=== PATIENT | male | born 1960 | race Caucasian/White ===

== ENCOUNTER 2017-07-06 11:08 | Emergency (ER) | payer BC ==
[~2017-07-06] VITALS: Ht 185.4 cm; Wt 74.8 kg
[2017-07-06] MEDS ORDERED: NOVOLOG100 UNIT/1 SUB-Q (11:26)
[2017-07-06] MEDS ORDERED: BENAZEPRIL HCL10 MG PO (11:28)
[2017-07-06] MEDS ORDERED: ATORVASTATIN CA20 MG PO (11:29)
[2017-07-06] MEDS ORDERED: ZOFRAN ODT4 MG PO (14:52)
[2017-07-06] MEDS ORDERED: OMEPRAZOLE20 MG PO (14:52)
[2017-07-06] MEDS ORDERED: LORAZEPAM1 MG PO (14:52)
--- NOTE | 2017-07-07 00:37 | EKG ---
[facility] [address] [place] [address] Signed Sinus bradycardia with marked sinus arrhythmia Otherwise normal ECG No previous ECGs available Confirmed by JUAN C MOSER MD ([id number]) on 07/07/2017 12:37:29 AM Electronically Signed By: JUAN C MOSER MD 07/07/17 0037 PATIENT NAME: NIKKI OLMEDO Electrocardiogram DATE OF : 58 PHYSICIAN: JUA NC MOSER MD REPORT #: [id number] REPORT IS CONFIDENTIAL AND NOT TO BE RELEASED WITHOUT AUTHORIZATION
--- NOTE | 2017-07-07 00:38 | EKG ---
[facility] [address] [place] [address] Signed Normal sinus rhythm Nonspecific ST abnormality Abnormal ECG When compared with ECG of 06-JUL-2017 11:12, (Unconfirmed) Vent. rate has increased BY 37 BPM QT has lengthened Confirmed by JUAN C MOSER MD ([id number]) on 07/07/2017 12:37:45 AM Electronically Signed By: JUAN C MOSER MD 07/07/17 0038 PATIENT NAME: NIKKI OLMEDO SANDIP Electrocardiogram DATE OF : 58 PHYSICIAN: JUAN C MOSER MD REPORT #: [id number] REPORT IS CONFIDENTIAL AND NOT TO BE RELEASED WITHOUT AUTHORIZATION
== END 2017-07-06 15:00 | disposition home or self-care (01) ==
LOC: ED 11:08
DX: F43.0 Acute stress reaction (principal); K29.70 Gastritis, unspecified, without bleeding; Z79.4 Long term (current) use of insulin; Z79.899 Other long term (current) drug therapy
CPT/HCPCS: 36415; 71010; 80053; 82247; 82465; 83615; 83690; 84100; 84478; 84484; 84550; 85025; 93005; 93010; 96361; 96374; 96375; 99284; J2060; J2405; J2550; J7030

== ENCOUNTER 2017-07-22 12:24 | Day surgery (SDC) | payer BC ==
[~2017-07-22] VITALS: Ht 185.4 cm; Wt 72.6 kg
[~2017-07-22 12:24] MED LIST: ATORVASTATIN CA20 MG PO; BENAZEPRIL HCL10 MG PO; LORAZEPAM1 MG PO; NOVOLOG100 UNIT/1 SUB-Q; OMEPRAZOLE20 MG PO; ZOFRAN ODT4 MG PO
[2017-07-22] MEDS ORDERED: VITAMIN D2000 UNI1 PO (12:55)
[2017-07-22] MEDS ORDERED: VITAMIN C500 M4 PO (12:55)
[2017-07-22] MEDS ORDERED: VITAMIN B COMP1 EACH PO (12:55)
[2017-07-22] MEDS ORDERED: MELATONIN3 MG PO (12:56)
--- NOTE | 2017-07-22 14:39 | NUR ---
07/22/17 Galina Flood- AT BEDSIDE.
--- NOTE | 2017-07-22 22:41 | OR ---
[facility] [address] [place], [place] [address] Signed DATE OF OPERATION: 07/22/2017 SURGEON: Mari Zapata MD PREOPERATIVE DIAGNOSIS: Colon screening. POSTOPERATIVE DIAGNOSIS: Normal colon to cecum. PROCEDURE: Total colonoscopy to cecum. ANESTHESIA: Intravenous sedation; fentanyl 150 mcg, Versed 6 mg. INDICATION: This 57-year-old white man is a patient of Dr. Donald and is free of any symptoms of bleeding, diarrhea, or constipation. He is referred by Angelika Zepeda PA-C for consideration of colonoscopy. He underwent colonoscopy in March of 2011, which was noted to be normal. An upper endoscopy concurrently performed showed a pre-pyloric erosion of the stomach. He is symptom-free at this time and he is here for surveillance colonoscopy. He understands the risks of bleeding, infection, and perforation related to colonoscopy and wished to proceed. FINDINGS: The prep was good. Complete colonoscopy was undertaken of the cecum without question. There was no sign of polyps, diverticular formation, colitis, or cancer. DESCRIPTION OF PROCEDURE: The patient was brought to the endoscopy suite and placed in lateral decubitus position, given intravenous sedation to the point of slurred speech and nystagmus. Digital rectal examination was normal. An Olympus video colonoscope was passed in the rectum and manipulated throughout the colon and ultimately intubating the cecum itself. The ileocecal valve and appendiceal orifice were normal. The scope was withdrawn from that point. Examination throughout showed no sign of abnormality, specifically no polyps, diverticular formation, colitis, or cancer. Retroflex view of the rectum was normal as well. The scope was removed, and the patient was taken to recovery room in good condition. Electronically Signed By: MARI ZAPATA MD 07/22/17 2241 PATIENT NAME: NIKKI OLMEDO OPERATIVE REPORT DATE OF : 58 PHYSICIAN: MARI ZAPATA MD REPORT #: [id number] REPORT IS CONFIDENTIAL AND NOT TO BE RELEASED WITHOUT AUTHORIZATION [facility] [address] [place] [address] [place], [place] [address] Signed CONCLUDING DIAGNOSIS: Normal colon. PLAN: Recommend repeat colonoscopy in 10 years or sooner if clinically indicated. He will return to the ongoing care of Dr. Donald. MD J LUIS Turk/MODL /[id number] cc: Chas Donald DO Electronically Signed By: MARI ZAPATA MD 07/22/17 2241 PATIENT NAME: NIKKI OLMEDO OPERATIVE REPORT DATE OF : 58 PHYSICIAN: MARI ZAPATA MD REPORT #: [id number] REPORT IS CONFIDENTIAL AND NOT TO BE RELEASED WITHOUT AUTHORIZATION
== END 2017-07-22 15:15 | disposition home or self-care (01) ==
LOC: OPS 12:24 → DS 12:24 → OPS 13:00
PROVIDERS: Surgery
PROC: 0DJD8ZZ Inspection of Lower Intestinal Tract, Via Natural or Artificial Opening Endoscopic (ICD-10-PCS; principal; 2017-07-22 13:00)
DX: Z12.11 Encounter for screening for malignant neoplasm of colon (principal); F41.0 Panic disorder [episodic paroxysmal anxiety]; E11.9 Type 2 diabetes mellitus without complications; Z79.899 Other long term (current) drug therapy; Z98.890 Other specified postprocedural states
CPT/HCPCS: 99152; 99153; J2250; J3010; J7120

== ENCOUNTER 2020-11-24 08:45 | Day surgery (SDC) | payer BC ==
[~2020-11-24] VITALS: Ht 185.4 cm; Wt 72.7 kg
[~2020-11-24 08:45] MED LIST changes: +MELATONIN3 MG PO; +MULTI VITAMIN1 EACH PO; +VITAMIN B COMP1 EACH PO; +VITAMIN C500 M4 PO; +VITAMIN D2000 UNI1 PO
--- NOTE | 2020-11-24 15:58 | NUR ---
11/24/20 1551 Gina Peterson 1553 PATIENT ARRIVES TO PACU UNRESPONSIVE TO PAIN, ORAL AIRWAY IN PLACE. RESP EVEN AND UNLABORED, MASK AT 6 LITERS.
[2020-11-24] MEDS ORDERED: OXYCODON-ACETA1 EAC2 PO (16:15)
[2020-11-24] MEDS ORDERED: ACETAMINOPHEN500 MG PO (16:16)
--- NOTE | 2020-11-24 16:57 | NUR ---
REQUESTED SUGAR FREE SODA AND SUGAR FREE JELLO AND GIVEN. AT BEDSIDE.
--- NOTE | 2020-11-24 18:08 | NUR ---
DR ZAPATA INFORMED OF PT TRANSFER TO RM 125 UNTIL HE CAN VOID.
--- NOTE | 2020-11-24 18:12 | NUR ---
VSS, RESP EVEN AND UNLABORED. PT REPORTS INCREASING PAIN, RX ADMINISTERED ORDERED. SEE PT EMAR. LAP SITES X4 MINIMAL DRAINAGE. PT WISHES TO TRY USING BR. DANGLES AT BEDSIDE AND DENIES DIZZINESS AND SOB. AMBULATES TO BR WITH STANDBY ASSIST FROM THIS RN. DAISHA WELL. UNABLE TO VOID AT THIS TIME. BLADDER SCAN COMPLETED AND 280ML NOTED. BEDSIDE BLOOD GLUCOSE 223. POC DISCUSSED WITH PT AND PT'S . PT VOICES UNDERSTANDING
--- NOTE | 2020-11-24 18:14 | NUR ---
1802: PT WHEELED TO ROOM 125 ON MED SURG UNIT. REPORT PROVIDED AND CARE ASSUMED
--- NOTE | 2020-11-24 19:00 | NUR ---
SHIFT REPORT RECEIVED FROM DAYSHIFT JERALD LYNN. pt AWAKE AND RESTING IN CHAIR, DRINKING TEA AND ATTEMPTING TO VOID. LAP SITES X4 WITH STERI STRIPS IN PLACE, SMALL AMOUNT SEROSANGUINEOUS SHADOWING NOTED. WILL MONITOR. CALL LIGHT IN REACH.
--- NOTE | 2020-11-24 20:30 | NUR ---
pt VOIDED 50MLS URINE FOLLOWED THEN BY 25MLS. pt THEN BLADDER SCANNED, RESULT OF 270'S. CALL MADE TO DR ZAPATA, DISCUSSED pt'S DESIRE TO GO HOME. DENIES PAIN WITH URINATION, STATES, "IT JUST DOESN'T FEEL LIKE I HAVE TO GO". TELEPHONE ORDER FOR 1LITER LR BOLUS TO INFUSE OVER 30 MINUTES, THEN STATES, "BETTER YET, JUST GIVE HIM A LITER OF FLUID...LIKE A SODA. THAT SHOULD PRODUCE URINE". 2 20OZ BOTTLES DIET PEPSI PROVIDED, DISCUSSED POC. pt AGREES. TO GO AND ATTEMPT TO OBTAIN PRESCRIPTIONS FOR pt. WILL MONITOR.
--- NOTE | 2020-11-24 21:45 | NUR ---
AFTER DRINKING A 20OZ OF DIET PEPSI, pt REPORTS VOIDING ANOTHER 200MLS URINE, YELLOW IN COLOR. DENIES PAIN WITH URINATION. BLADDER SCANNED FOR 189MLS. DISCUSSED WITH ASSOCIATE TRAINER SHANNON, BOTH HER AND I FEEL pt HAS MET REQUIREMENTS TO LEAVE. AND pt BOTH VERBALIZE THEY RECEIVED WRITTEN AND VERBAL DC INSTRUCTIONS EARLIER BY [facility] STAFF. PER , INSTRUCTIONS ALREADY IN CAR. ABLE TO OBTAIN PERSCRIPTION. pt DENIES PAIN AT LAP SITES X4, MINIMAL DRY BLOOD NOTED AT LAP SITES, STERI STRIPS REMAIN IN PLACE. pt ALSO DENIES NAUSEA. pt AND AGAIN EDUCATED TO NOT GO OVER 4,000 MG OF TYLENOL IN A 24 HR PERIOD, BOTH pt AND VERBALIZED UNDERSTANDING. pt STATES, "I HOPE TO NOT HAVE TO USE THE PERCOCET". pt VERBALIZES PLAN TO CALL [facility] ON FRIDAY TO SCHEDULE FOLLOW-UP. IV SITE REMOVED, CATHETER TIP INTACT. VSS, pt TRANSPORTED VIA WHEELCHAIR WITH HELP FROM JESSE DOWD TO MAIN ENTRANCE, TO TRANSPORT pt HOME.
--- NOTE | 2020-11-25 15:13 | EKG ---
[facility] [address] [facility] [place] [address] Signed Normal sinus rhythm Normal ECG When compared with ECG of 06-JUL-2017 14:04, Vent. rate has decreased BY 32 BPM Non-specific change in ST segment in Lateral leads QT has shortened Confirmed by NAVNEET DRISCOLL DO ([id number]) on 11/25/2020 3:12:51 PM Electronically Signed By: NAVNEET DRISCOLL DO 11/25/20 1513 PATIENT NAME: NIKKI OLMEDO SANDIP Electrocardiogram DATE OF : 58 PHYSICIAN: NAVNEET DRISCOLL DO REPORT #: [id number] REPORT IS CONFIDENTIAL AND NOT TO BE RELEASED WITHOUT AUTHORIZATION
--- NOTE | 2020-11-26 12:21 | OR ---
[facility] [address] [place], [place] [address] Signed DATE OF OPERATION: 11/24/2020 SURGEON: Mari Zapata MD PREOPERATIVE DIAGNOSIS: Chronic acalculous cholecystitis. POSTOPERATIVE DIAGNOSIS: Chronic cholecystitis with sludge and gallstones. PROCEDURE: 1. Laparoscopic cholecystectomy with intraoperative cholangiogram. 2. Surgeon-directed fluoroscopy. ANESTHESIA: General endotracheal, Mari Hwang CRNA and local 20 mL of 0.25% Marcaine with epinephrine. INDICATION: This 60-year-old white man who is a patient of CLEOPATRA [facility] [place]. The patient has had feelings of biliary colic including feeling sick and bloated after eating since August of 2019. He has had pain in the right upper abdomen. His appetite is somewhat suppressed as well. He had an episode in August 2019 where he felt sick for at least two days progressively ultimately symptoms resolved on their own. His symptoms currently are highly typical of biliary colic and he is admitted at this time to undergo cholecystectomy preferred by laparoscopic approach. It is noted that his gallbladder was quite distended, reaching a length of at least 14.4 cm with mobile sludge. FINDINGS: Indeed the gallbladder was markedly distended and elongated. Chronic inflammation was noted. Once excised, the gallbladder was noted to have sludge with grainy stone type material, but also well-formed stones 5-6 in number that were dark and multifaceted. Cholangiogram was normal. The liver was normal as well. 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 PROCEDURE: The patient was brought to the operating room, given a general endotracheal anesthetic. Preoperative antibiotic Ancef was given. Sequential compression device stockings were Electronically Signed By: MARI ZAPATA MD 11/26/20 1221 PATIENT NAME: NIKKI OLMEDO OPERATIVE REPORT DATE OF : 58 REPORT #: [id number] PHYSICIAN: MARI ZAPATA MD PCP: CANDELARIA POOL REPORT IS CONFIDENTIAL AND NOT TO BE RELEASED WITHOUT AUTHORIZATION [facility] [address] [place], [place] [address] Signed used and heparin subcutaneously administered. The abdomen was clipped and prepared with a chlorhexidine solution and draped sterilely. There was a palpable nonreducible fatty nodule above the umbilicus consistent with epiplocele (properitoneal fat through the fascial defect), but this was left in situ. An infraumbilical incision was made and using an open Milo cannula technique, pneumoperitoneum was achieved to a level of 14 mmHg of carbon dioxide gas. Intraabdominal inspection showed no sign of ascites or carcinomatosis. The gallbladder was visualized and found to be markedly distended and elongated and chronically inflamed liver was normal. Three additional trocars were placed in usual configuration in the subxiphoid, right midclavicular, and right anterior axillary line. The gallbladder was too tense to be grasped and extended and therefore a laparoscopic trocar decompression of the gallbladder was undertaken. This showed very dark relatively thick bile. The puncture site was grasped and the gallbladder elevated cephalad maintaining much of its intraabdominal contents to better define the anatomy of the gallbladder itself. The gallbladder was retracted laterally and using blunt electrocautery dissection, the triangle of Calot was dissected free ultimately identifying well cystic duct. Notably, there was a cystic arterial branch, which was associated with an enlarged pericholecystic lymph node. The cystic artery was doubly clipped and divided, ultimately revealing well the infundibulum. A clip was applied across gallbladder cystic duct junction. A transverse choledochotomy was made in the moderately sized cystic duct and using an Marx type cholangiocatheter, intraoperative cholangiography undertaken. Cholangiography showed free flow of contrast in biliary tree with prompt emptying into the duodenum. There was no sign of filling defect, obstruction, or other problem. The catheter was removed. The cystic duct was triply clipped and then divided. The gallbladder was then dissected free in a retrograde fashion using electrocautery. Entry to the gallbladder allowed for egress of dark black bile and grainy type material. This was suctioned free. Ultimately, the gallbladder was excised from the hepatic fossa, placed in an endobag and extracted through the infraumbilical port site was opened on the back table and found to have several (4-5) dark soft amorphous gallstones. The mucosa of the gallbladder was normal otherwise. Reinspection of subhepatic space showed only minimal oozing of blood in the medial aspect of the gallbladder fossa. This area was controlled with electrocautery and subsequently with the spray application of Tisseel (fibrin glue). Good hemostasis was noted. Excess irrigation fluid was suctioned free. The omentum was packed into the subhepatic space as usual. The trocars were then removed under direct visualization showing no sign of bleeding. The infraumbilical fascial incision was reapproximated with interrupted 0 Vicryl suture as well as a running 0 PDS suture. A 20 mL of 0.25% Marcaine with epinephrine was injected into the trocar sites. Skin irrigated and skin closed with interrupted 3-0 Vicryl. Steri-Strips were applied. The patient was ultimately extubated and transferred to the recovery room in good condition having Electronically Signed By: MARI ZAPATA MD 11/26/20 1221 PATIENT NAME: NIKKI OLMEDO OPERATIVE REPORT DATE OF : 58 REPORT #: [id number] PHYSICIAN: MARI ZAPATA MD PCP: CANDELARIA POOL REPORT IS CONFIDENTIAL AND NOT TO BE RELEASED WITHOUT AUTHORIZATION [facility] [address] [facility] [place] [place] [address] Signed suffered no complication. Sponge, needle, and instrument counts reported as correct x3. MD J LUIS Turk/MODL /[id number] cc: [facility]OPATRA Marsh Copies: CANDELARIA POOL ~ Electronically Signed By: MARI ZAPATA MD 11/26/20 1221 PATIENT NAME: NIKKI OLMEDO OPERATIVE REPORT DATE OF : 58 REPORT #: [id number] PHYSICIAN: MARI ZAPATA MD PCP: CANDELARIA POOL REPORT IS CONFIDENTIAL AND NOT TO BE RELEASED WITHOUT AUTHORIZATION
== END 2020-11-24 22:00 | disposition home or self-care (01) ==
LOC: DS 08:45 → MS 18:14 → DS 22:00 → MS 22:00
PROVIDERS: ATTEND Surgery
PROC: BF12YZZ Fluoroscopy of Gallbladder using Other Contrast (ICD-10-PCS; 2020-11-24)
PROC: 0FT44ZZ Resection of Gallbladder, Percutaneous Endoscopic Approach (ICD-10-PCS; principal; 2020-11-24 10:45)
DX: K80.10 Calculus of gallbladder with chronic cholecystitis without obstruction (principal)
CPT/HCPCS: 00790; 74300; 93005; 93010; J0330; J0690; J1100; J1644; J1885; J2250; J2405; J2704; J2765; J3010; J7121; Q9967

== ENCOUNTER 2021-11-19 11:37 | Emergency (ER) | payer BC ==
[~2021-11-19] VITALS: Ht 185.4 cm; Wt 72.6 kg
[~2021-11-19 11:37] MED LIST changes: +ACETAMINOPHEN500 MG PO; +OXYCODON-ACETA1 EAC2 PO
[2021-11-19] MEDS ORDERED: SERTRALINE HCL200 MG PO (12:16)
== END 2021-11-19 15:15 | disposition home or self-care (01) ==
LOC: ED 11:37
DX: E10.10 Type 1 diabetes mellitus with ketoacidosis without coma (principal); Z79.899 Other long term (current) drug therapy; Z79.4 Long term (current) use of insulin
CPT/HCPCS: 36415; 80053; 81001; 82010; 82803; 85025; 96374; 99284-25; J2405; J7030

== ENCOUNTER 2022-07-18 10:33 | Day surgery (SDC) | payer BC ==
[~2022-07-18] VITALS: Ht 185.4 cm; Wt 71.3 kg
[~2022-07-18 10:33] MED LIST changes: +SERTRALINE HCL200 MG PO
--- NOTE | 2022-07-18 13:21 | NUR ---
07/18/22 1321 Gina Peterson 1317 PATIENT ARRIVES TO PACU AWAKE BUT DROWSY. RESP EVEN AND UNLABORED, NC AT 2L TURNED OFF ON ARRIVAL TO PACU. PATIENT DENIES PAIN OR NAUSEA. ASKING/ANSWERING QUESTIONS APPROPRIATELY.
--- NOTE | 2022-07-24 15:06 | PATH ---
[facility] [address] [place], [place] [address] Signed THIS IS AN ADDENDUM REPORT SPECIMEN(S): A DUODENAL BIOPSY SPECIMEN(S): B ANTRUM/PYLORUS BIOPSY SPECIMEN(S): C STOMACH BODY BIOPSY SPECIMEN(S): D LOWER ESOPHAGEAL BIOPSY SPECIMEN(S): E MIDDLE ESOPHAGEAL BIOPSY SPECIMEN SOURCE: A. DUODENAL BIOPSY B. ANTRUM/PYLORUS BIOPSY C. STOMACH BODY BIOPSY D. LOWER ESOPHAGEAL BIOPSY E. MIDDLE ESOPHAGEAL BIOPSY CLINICAL HISTORY: Screening, hx reflux. Post-op: Antral gastritis, normal colon. FINAL PATHOLOGIC DIAGNOSIS: A. Duodenal biopsy: - Benign duodenal mucosa, negative for specific diagnostic abnormality. B. Antrum / pylorus biopsy: - Benign gastric-type mucosa with reactive features and focal mild superficial chronic inflammation. - Negative for Helicobacter organisms on immunostained sections. C. Stomach body biopsy: - Benign gastric-type mucosa, negative for evidence of Helicobacter organisms on routine HE stained sections. D. Lower esophageal biopsy: - Benign esophageal mucosa, negative for increased epithelial eosinophils. - Negative for glandular mucosa. E. Middle esophageal biopsy: - Benign esophageal mucosa, negative for increased epithelial eosinophils. - Focal, mild superficial acute inflammation. (comment) COMMENT: A PAS with diastase stain is pending on the mid esophageal biopsy to evaluate for fungal organisms and will be reported in an addendum. JVR:archie:[id number] MICROSCOPIC EXAMINATION: PATIENT NAME: SHARANIKKIPADMINI OROPEZA PATHOLOGY DATE OF : 58 REPORT #: [id number] PHYSICIAN: JAZMÍN PATHOLOGY PCP: CANDELARIA POOL REPORT IS CONFIDENTIAL AND NOT TO BE RELEASED WITHOUT AUTHORIZATION [facility] [address] [place], [place] [address] Signed Histologic sections of all submitted blocks are examined by light microscopy. These findings, together with the gross examination, support the pathologic diagnosis. A Helicobacter pylori immunostain is performed with appropriate positive and negative controls on block (B1) and is negative for organisms. JVR:[facility] GROSS DESCRIPTION: Five specimens are received in five containers, labeled "SC." A. The specimen, labeled "SC, duodenum biopsy," is received in formalin and consists of one newman soft tissue fragment that measures 0.3 cm in greatest dimension. The specimen is entirely submitted in cassette (A1). B. The specimen, labeled "SC, antrum/pylorus biopsies," is received in formalin and consists of two newman soft tissue fragments that measure 0.2-0.3 cm in greatest dimension. The specimen is entirely submitted in cassette (B1). C. The specimen, labeled "SC, stomach body biopsy," is received in formalin and consists of two newman soft tissue fragments that measure 0.2-0.3 cm in greatest dimension. The specimen is entirely submitted in cassette (C1). D. The specimen, labeled "SC, lower esophagus biopsy," is received in formalin and consists of two newman soft tissue fragments that measure 0.3-0.4 cm in greatest dimension. The specimen is entirely submitted in cassette (D1). E. The specimen, labeled "SC, mid esophagus biopsies," is received in formalin and consists of two newman soft tissue fragments that measure 0.1-0.3 cm in greatest dimension. The specimen is entirely submitted in cassette (E1). VB (under the direct supervision of a pathologist) The Gross Description was prepared using a voice recognition system. The report was reviewed for accuracy; however, sound-alike word errors, addition and/or deletions may occur. If there is any question about this report, please contact Client Services. ADDITIONAL NOTES: Immunohistochemical and/or in situ hybridization studies were performed on this case with the appropriate positive controls that react as expected. This test was developed and its performance characteristics determined by [facility]. It has not been cleared or approved by the U.S. Food and Drug Administration. The FDA has determined that PATIENT NAME: NIKKI OLMEDO PATHOLOGY DATE OF : 58 REPORT #: [id number] PHYSICIAN: JAZMÍN JACOBS PCP: CANDELARIA POOL REPORT IS CONFIDENTIAL AND NOT TO BE RELEASED WITHOUT AUTHORIZATION [facility] [address] [place], [place] [address] Signed such clearance or approval is not necessary. This test is used for clinical purposes. It should not be regarded as investigational or for research. [facility] is certified under the Clinical Laboratory Improvement Amendments of 1988 (CLIA) as qualified to perform high complexity clinical laboratory testing. This assay has not been validated for specimens that have been decalcified. PERFORMING LABORATORY: The technical component was performed by [facility], [address] [place] [id number] (CLIA# [id number]). Professional interpretation was performed by [facility], [address] [place] [address]., [place] [address] (CLIA#: [id number]). ADDITIONAL NOTES: Immunohistochemical and/or in situ hybridization studies were performed on this case with the appropriate positive controls that react as expected. This test was developed and its performance characteristics determined by [facility]. It has not been cleared or approved by the U.S. Food and Drug Administration. The FDA has determined that such clearance or approval is not necessary. This test is used for clinical purposes. It should not be regarded as investigational or for research. [facility] is certified under the Clinical Laboratory Improvement Amendments of 1988 (CLIA) as qualified to perform high complexity clinical laboratory testing. This assay has not been validated for specimens that have been decalcified. PERFORMING LABORATORY: The technical component was performed by [facility], [address] [place] [id number] (CLIA# [id number]). Professional interpretation was performed by [facility], [address] [place] [address]., [place] [address] (CLIA#: [id number]). REASON FOR ADDENDUM: To report the results of PAS with diastase stain on block (E1) (mid esophageal biopsy). ADDENDUM COMMENT: PAS with diastase stain is performed with appropriate controls on block (E1) and is negative for fungal organisms. The original diagnostic features remain unchanged. PATIENT NAME: NIKKI OLMEDO PATHOLOGY DATE OF : 58 REPORT #: [id number] PHYSICIAN: JAZMÍN JACOBS PCP: CANDELARIA POOL REPORT IS CONFIDENTIAL AND NOT TO BE RELEASED WITHOUT AUTHORIZATION [address], [place] [address] Signed JDASHAWN:[facility] Diagnostician: Lars Baldwin MD Pathologist Electronically Signed 07/24/2022 Copies: ~ PATIENT NAME: SHARANIKKIPADMINI OROPEZA PATHOLOGY DATE OF : 58 REPORT #: [id number] PHYSICIAN: JAZMÍN PATHOLOGY PCP: CANDELARIA POOL REPORT IS CONFIDENTIAL AND NOT TO BE RELEASED WITHOUT AUTHORIZATION
--- NOTE | 2022-07-24 16:53 | OR ---
[facility] [address], [place] [address] Signed DATE OF OPERATION: 07/18/2022 SURGEON: Mari Zapata MD PREOPERATIVE DIAGNOSES: 1. Family history of colon cancer (father and paternal grandfather). 2. Persistent epigastric pain. POSTOPERATIVE DIAGNOSES: 1. Significant antral and body of stomach gastritis without ulceration. 2. Normal colon to cecum. PROCEDURES: 1. Total colonoscopy to cecum. 2. Upper endoscopy with biopsy. ANESTHESIA: Intravenous sedation; fentanyl 100 mcg, Versed 5 mg. INDICATIONS: This 62-year-old white man is well known to me from the past. He is a patient of [facility]. He is known to me from the past. The patient has had complaints of upper abdominal epigastric type pain. Previously, he had taken PPI medication, Prilosec with some benefit, but it is no longer doing so. He has had no hematemesis or blood per rectum. Additionally, the patient has family history of colon cancer in his father and paternal grandfather. He is admitted at this time to undergo upper endoscopy and colonoscopy. He understands the risks of bleeding, infection, and perforation. FINDINGS: Upper endoscopy did confirm significant gastritis both antrum and body of stomach. CLOtest was negative 30 minutes post procedure. The esophagus had mild distal esophagitis, but no Mccarty epithelium, stricture, or neoplasm. The duodenum was normal. On colonoscopy, the prep was good. Complete colonoscopy was undertaken of the cecum. There was no evidence of polyps, diverticular formation, colitis, or cancer. DESCRIPTION OF PROCEDURE: Electronically Signed By: MARI ZAPATA MD 07/24/22 1653 PATIENT NAME: NIKKI OLMEDO OPERATIVE REPORT DATE OF : 58 REPORT #: [id number] PHYSICIAN: MARI ZAPATA MD PCP: CANDELARIA POOL REPORT IS CONFIDENTIAL AND NOT TO BE RELEASED WITHOUT AUTHORIZATION [facility] [address], [place] [address] Signed The patient was brought to the endoscopy suite and given topical hypopharyngeal lidocaine anesthesia and placed in lateral decubitus position. He was given intravenous sedation to the point of slurred speech and nystagmus with full cardiopulmonary monitoring. A bite block was placed. An Olympus video upper endoscope was passed into the hypopharynx. The vocal cords appeared normal. The scope was advanced to the esophagus, throughout its length it was normal. Scope was advanced to the stomach, which was insufflated with air. Rugal folds were normal; however, there was significant antral gastritis. The pylorus was normal without sign of deformity. The scope was passed through into the duodenum, which was normal. Biopsies were taken of the second and bulbar portions of the duodenum, though it appeared normal. Scope was withdrawn. A biopsy was then taken of the antrum and more proximal stomach for both CLARISSA and pathologic testing. Retroflexed view showed a good flap valve. The scope was withdrawn to the distal esophagus. Biopsies were obtained there as well as the mid esophagus, though there was no evidence of Mccarty epithelium or stricture. The scope was then withdrawn and removed. Plans were then made for colonoscopy. The table was rotated and additional sedation given and digital rectal examination performed. An Olympus video colonoscope was passed into the rectum and manipulated throughout the colon, ultimately intubating the cecum itself. The ileocecal valve and appendiceal orifice were normal. Full intubation of the ileum was accomplished. The scope was then withdrawn, examination throughout showed no sign of polyps, diverticular formation, colitis, or cancer. Retroflexed view was normal as well. The scope was removed. The patient was taken to the recovery room in good condition. CONCLUDING DIAGNOSIS: Gastritis. PLAN: 1. Recommend Prilosec 20 mg p.o. daily. 2. Normal colon to cecum. 3. Recommend repeat colonoscopy in 5 years or sooner if clinically indicated. Family history of colon cancer would indicate need for colonoscopy every five years. He will return to see us in approximately six weeks or sooner if problems should occur. Mari Zapata MD Electronically Signed By: MARI ZAPATA MD 07/24/22 165 PATIENT NAME: NIKKI OLMEDO OPERATIVE REPORT DATE OF : 58 REPORT #: [id number] PHYSICIAN: MARI ZAPATA MD PCP: CANDELARIA POOL REPORT IS CONFIDENTIAL AND NOT TO BE RELEASED WITHOUT AUTHORIZATION [address] [place], [place] [address] Signed J LUIS/MARI /[id number] cc: [facility] Copies: ~ Electronically Signed By: MARI ZAPATA MD 07/24/22 1653 PATIENT NAME: NIKKI OLMEDO OPERATIVE REPORT DATE OF : 58 REPORT #: [id number] PHYSICIAN: MARI ZAPATA MD PCP: CANDELARIA POOL REPORT IS CONFIDENTIAL AND NOT TO BE RELEASED WITHOUT AUTHORIZATION
== END 2022-07-18 14:20 | disposition home or self-care (01) ==
LOC: OPS 10:33 → DS 10:37 → OPS 14:00 → DS 14:00 → OPS 14:20
PROVIDERS: ATTEND Surgery
PROC: 0DJD8ZZ Inspection of Lower Intestinal Tract, Via Natural or Artificial Opening Endoscopic (ICD-10-PCS; principal; 2022-07-18 14:00)
PROC: 0DB68ZX Excision of Stomach, Via Natural or Artificial Opening Endoscopic, Diagnostic (ICD-10-PCS; 2022-07-18 14:00)
DX: K29.50 Unspecified chronic gastritis without bleeding (principal); Z12.11 Encounter for screening for malignant neoplasm of colon; K20.90 Esophagitis, unspecified without bleeding; E11.9 Type 2 diabetes mellitus without complications; E78.5 Hyperlipidemia, unspecified; Z80.0 Family history of malignant neoplasm of digestive organs; Z79.899 Other long term (current) drug therapy; Z79.4 Long term (current) use of insulin
CPT/HCPCS: 99153; G0500; J2250; J3010; J7121

== ENCOUNTER 2022-08-26 21:26 | Emergency (ER) | payer BC ==
[~2022-08-26] VITALS: Ht 185.4 cm; Wt 71.2 kg
[2022-08-26] MEDS ORDERED: OMEPRAZOLE20 MG PO (21:44)
[2022-08-26] MEDS ORDERED: LAMOTRIGINE200 MG PO (21:44)
[2022-08-26] MEDS ORDERED: LOMOTIL TABLET1 EACH PO (23:55)
== END 2022-08-27 00:58 | disposition home or self-care (01) ==
LOC: ED 21:26
DX: K52.9 Noninfective gastroenteritis and colitis, unspecified (principal); E10.65 Type 1 diabetes mellitus with hyperglycemia; Z79.899 Other long term (current) drug therapy; Z20.822 Contact with and (suspected) exposure to COVID-19
CPT/HCPCS: 36415; 80053; 81003; 82010; 82803; 83690; 85025; 86850; 86900; 86901; 87045; 87502; 99284; J7040; J7121; U0003

== ENCOUNTER 2024-08-19 07:57 | Emergency (ER) | payer MEDICARE, OTHER ==
[~2024-08-19] VITALS: Ht 185.4 cm; Wt 72.6 kg
[~2024-08-19 07:57] MED LIST changes: +ABILIFY2 MG PO; +ACYCLOVIR400 MG PO; +LAMOTRIGINE100 MG PO; +LAMOTRIGINE200 MG PO; +LOMOTIL TABLET1 EACH PO; +LOTENSIN20 MG PO; +NOVOLOG100 UNIT/1; +PRAZOSIN HCL1 MG PO; +TADALAFIL20 M1 PO
[2024-08-19 08:27] LABS: BASOPHILS 0.5 % (0-2); HEMATOCRIT 40.5 % (35.0-50.0); HEMOGLOBIN 13.6 g/dL (12.0-18.0); LYMPHOCYTES 3.2 % (24-44); MCH 30.6 (27-36); MCHC 33.7 g/dl (30-36); MCV 90.8 fl (81-99); MONOCYTES 3.6 % (0-12); NEUTROPHILS 92.7 % (39-80); PLATELET COUNT 170 K/uL (140-440); RBC 4.46 M/ul (4.3-5.7); RDW 13.1 (10.5-15.0)
[2024-08-19] MEDS ORDERED: FAMOTIDINE 20 MG/ 2 ML VIAL IV ONE (08:30)
[2024-08-19] MEDS ORDERED: ondansetron HCL 4 MG/2 ML VIAL IV ONE (08:30)
[2024-08-19] MEDS ORDERED: SODIUM CHLORIDE 0.9% 1,000 ML IV ONE ×2 (08:30→09:30)
[2024-08-19 08:45] LABS: ALBUMIN/GLOBULIN RATIO 1.18 (1.1-2.4); ANION GAP 23.3 (7-21); BILIRUBIN, TOTAL 1.3 ng/dL (0.2-1.0); BUN/CREATININE RATIO 18.58 (6.0-28.6); CALCIUM 9.5 mg/dL (8.5-10.1); CREATININE, SERUM 1.56 mg/dL (0.70-1.30); POTASSIUM 4.3 mmol/L (3.5-5.1); PROTEIN, TOTAL 7.4 g/dL (6.4-8.2)
[2024-08-19] MEDS ORDERED: PANTOPRAZOLE SODIUM 40 MG/10 ML VIAL IV ONE (08:45)
[2024-08-19] MEDS ORDERED: Insulin Regular, Human 100 UNIT/ML ML SUB-Q ONE (09:30)
[2024-08-19 11:04] LABS: BILIRUBIN, URINE NEGATIVE (negative); BLOOD/HGB, URINE NEGATIVE (Negative); KETONE, URINE >=80 (Negative); LEUK ESTERASE, URINE NEGATIVE (negative); NITRITE, URINE NEGATIVE (negative)
[2024-08-19] MEDS ORDERED: ONDANSETRON ODT8 MG PO (12:14)
[2024-08-19 12:24] VITALS: BP 113/55
== END 2024-08-19 12:24 | disposition home or self-care (01) ==
LOC: ED 07:57
PROVIDERS: Emergency Medicine
DX: E10.65 Type 1 diabetes mellitus with hyperglycemia (principal); K29.00 Acute gastritis without bleeding; Z96.41 Presence of insulin pump (external) (internal); Z79.899 Other long term (current) drug therapy
CPT/HCPCS: 36415; 71045; 80053; 81003; 82010; 82800; 83690; 84484; 85025; 96361; 96374; 96375; 99284-25; J1815; J2405; J2470; J7030